=== PATIENT | male | born 1970 | race Caucasian/White ===

== ENCOUNTER 2025-01-01 11:27 | Emergency (ER) | payer OTHER, SELFPAY ==
[2025-01-01 11:32] VITALS: BP 153/92; PULSE 78; TEMP 36.7; O2SAT 98; BMI 31.4
--- NOTE | 2025-01-01 12:04 | CTR_ITS ---
PROCEDURE INFORMATION: Exam: CT Orbits With Contrast Exam date and time: 01/01/2025 12:39 PM Age: 54 years old Clinical indication: Visual changes or disturbances; Double vision (diplopra); PT arrives pov C/O blurry and doubling vision on and off for the past few days. ; Additional info: Diplopia TECHNIQUE: Imaging protocol: Computed tomography of the orbits with contrast. Radiation optimization: All CT scans at this facility use at least one of these dose optimization techniques: automated exposure control; mA and/or kV adjustment per patient size (includes targeted exams where dose is matched to clinical indication); or iterative reconstruction. Contrast material: OMNI 350; Contrast volume: 100 ml; Contrast route: INTRAVENOUS (IV); COMPARISON: None available. RADIATION DOSE METRICS: Total DLP (mGy-cm): 2834.23 FINDINGS: Optic globes appear intact. No suspicious orbital mass is identified. There is symmetric appearance of the optic nerves. Please note that MRI with coronal STIR imaging and/or 3D FLAIR imaging could provide more sensitive assessment for optic neuritis, if clinically warranted. There is symmetric appearance of the extraocular muscles. No suspicious parasellar mass detected. No evidence of cavernous sinus thrombosis. Paranasal sinuses are well-aerated. CT/CT orbit BI w con [id number] IMPRESSION: No detectable acute orbital abnormality or suspicious orbital mass. Please note that CT has extremely low sensitivity for optic neuritis. MRI could provide more optimal assessment for optic neuritis, and MRA could provide assessment for aneurysm, if either is clinically warranted and feasible.
--- NOTE | 2025-01-01 12:05 | CTR_ITS ---
PROCEDURE INFORMATION: Exam: CT Head Without And With Contrast Exam date and time: 01/01/2025 12:39 PM Age: 54 years old Clinical indication: Visual disturbance; Additional info: Diplopia TECHNIQUE: Imaging protocol: Computed tomography of the head without and with contrast. Radiation optimization: All CT scans at this facility use at least one of these dose optimization techniques: automated exposure control; mA and/or kV adjustment per patient size (includes targeted exams where dose is matched to clinical indication); or iterative reconstruction. Contrast material: OMNI 350; Contrast volume: 100 ml; Contrast route: INTRAVENOUS (IV); COMPARISON: CT orbit BI w con [id number] 01/01/2025 12:39 PM RADIATION DOSE METRICS: Total DLP (mGy-cm): 2834.23 FINDINGS: Brain: Unenhanced images demonstrate no acute intracranial hemorrhage or abnormal intracranial mass effect. The contrast-enhanced images demonstrate no obvious pathologic intracranial enhancement. There are no subdural collections. Cerebral ventricles: Size within normal range for age. No midline shift. Paranasal sinuses: Visualized portions of paranasal sinuses are well aerated. Mastoid air cells: Visualized portions of mastoid sinuses are not opacified. Bones: Unremarkable. No acute fracture. Soft tissues: No acute abnormality unless otherwise stated above. CT/CT head wo/w con [id number] IMPRESSION: No acute intracranial hemorrhage or mass effect.
--- NOTE | 2025-01-01 12:05 | ED_ITS ---
HPI - Eye Problem 2 General: Chief complaint: Eye Problems Stated complaint: Blurry vision and seeing double Time Seen by Provider: 01/01/25 11:53 History of Present Illness: 54-year-old man who presents emergency r oom with diplopia. He says he has been seeing double for the last 3 to 4 days. He says it actually has improved a little bit. He went to an application tester who examined his eyes and gave him some weak glasses that had not helped at all. He says he sees 1 thing on top of the other i.e. vertical diplopia. No headache. No fevers. No altered mental status. No focal motor deficits. Related Data Allergies Allergy/AdvReac Type Severity Reaction Status Date / Time No Known Allergies Allergy Verified 01/01/25 11:39 Review of Systems 2 Narrative: Constitutional symptoms: Negative except as documented in HPI. Skin symptoms: Negative except as documented in HPI. Eye symptoms: Negative except as documented in HPI. ENMT symptoms: Negative except as documented in HPI. Respiratory symptoms: Negative except as documented in HPI. Cardiovascular symptoms: Negative except as documented in HPI. Gastrointestinal symptoms: Negative except as documented in HPI. Genitourinary symptoms: Negative except as documented in HPI. Musculoskeletal symptoms: Negative except as documented in HPI. Neurologic symptoms: Negative except as documented in HPI. Psychiatric symptoms: Negative except as documented in HPI. Endocrine symptoms: Negative except as documented in HPI. Physical Exam 2 Narrative: EXAM NARRATIVE: General: Alert, no acute distress. Skin: Warm, dry. Head: Normocephalic, atraumatic. Neck: Supple, trachea midline. Eye: Extraocular movements are intact. No pain with eye movement. Vision is grossly normal. He says his diplopia improves when I move closer. When he tilts his head to the right it becomes worse when he tilts to the left it gets better. Ears, nose, mouth and throat: mucosa moist. Cardiovascular: Regular, Normal peripheral perfusion. Respiratory: Lungs are clear to auscultation, respirations are non-labored, breath sounds are equal, Symmetrical chest wall expansion. Gastrointestinal: Soft, Nontender, Non distended Musculoskeletal: Normal ROM, no deformity. Neurological: Alert and oriented, No focal neurological deficit observed. Psychiatric: Cooperative, appropriate mood & affect. Course 2 Vital Signs: Vital signs: Vital Signs Temperature 98.1 F 01/01/25 11:32 Pulse Rate 67 01/01/25 13:15 Respiratory Rate 16 01/01/25 13:15 Blood Pressure 145/89 01/01/25 13:15 Pulse Oximetry 97 01/01/25 13:15 Oxygen Delivery Me thod Room Air 01/01/25 11:32 MDM - Eye Problem Medical Decision Making Medical decision making: Differential diagnosis including but not limited to and based on the above HPI, review of systems and physical exam: Patient by exam appears to have a 4th nerve palsy. After consultation with ophthalmology I am going to do with and without contrast of the head and eyes to rule out any structural abnormalities or stroke. Basic lab work. Orders placed to evaluate differential diagnosis based on the above differential, HPI and physical exam Consultation: I spoke with Dr. Diaz with ophthalmology who recommends CT scan of the head and orbits. Basic lab work and follow-up. He recommends a pirate patch and follow-up in ophthalmology clinic Lab Review: Laboratory results were reviewed and interpreted by myself the emergency room physician. No leukocytosis. No anemia. No renal failure. CT of the brain and orbits with and without contrast: No acute process. This was reviewed and interpreted by myself the emergency room physician. I also reviewed the radiology report. I reviewed the patient's medical record. Reexamination: Patient remained stable. No increased work of breathing. No altered mental status. No focal motor deficits. Assessment and plan: 4th nerve palsy Diplopia - Discharged home - Discussed plan with patient. Answered any questions. - Evaluation and treatment of this problem were appropriate in the emergency setting. Lab Data 01/01/25 12:57 01/01/25 12:[address] 01/01/25 12:04 IMPRESSION: No detectable acute orbital abnormality or suspicious orbital mass. Please note that CT has extremely low sensitivity for optic neuritis. MRI could provide more optimal assessment for optic neuritis, and MRA could provide assessment for aneurysm, if either is clinically warranted and feasible. Head CT 01/01/25 12:05 IMPRESSION: No acute intracranial hemorrhage or mass effect. Laboratory Results WBC 3.69 10^3/uL (3.29-11.43) 01/01/25 12:57 RBC 4.88 10^6/uL (3.85-5.65) 01/01/25 12:57 Hgb 14.60 g/dL (11.27-16.99) 01/01/25 12:57 Hct 42.1 % (37-53) 01/01/25 12:57 MCV 86.3 fl (82-101) 01/01/25 12:57 MCH 29.9 pg (27-33) 01/01/25 12:57 MCHC 34.7 g/dL (30-55) 01/01/25 12:57 RDW 12.0 % (12.1-15.1) L 01/01/25 12:57 Plt Count 254 10^3/cmm (157-399) 01/01/25 12:57 MPV 9.8 fL (7.4-10.4) 01/01/25 12:57 Neut % (Auto) 68.0 % 01/01/25 12:57 Lymph % (Auto) 21.7 % 01/01/25 12:57 [place] % (Auto) 7.9 % 01/01/25 12:57 Eos % (Auto) 1.6 % 01/01/25 12:57 Baso % (Auto) 0.8 % 01/01/25 12:57 Neut # (Auto) 2.51 10^3/uL (1.8-7.7) 01/01/25 12:57 Lymph # (Auto) 0.8 10^3/uL (0.8-4.8) 01/01/25 12:57 [place] # (Auto) 0.3 10^3/uL (0.2-0.9) 01/01/25 12:57 Eos # (Auto) 0.1 10^3/uL (0.0-0.8) 01/01/25 12:57 Baso # (Auto) 0.0 10^3/uL (0.0-0.1) 01/01/25 12:57 Nucleated RBC % (auto) 0 % 01/01/25 12:57 Nucleated RBCs # 0.0 /100WBC 01/01/25 12:57 Sodium 135 mmol/L (136-145) L 01/01/25 12:57 Potassium 4.1 mmol/L (3.5-5.1) 01/01/25 12:57 Chloride 100 mmol/L (98-107) 01/01/25 12:57 Carbon Dioxide 23 mmol/L (22-29) 01/01/25 12:57 Anion Gap 16.1 (5-19) 01/01/25 12:57 BUN 11 mg/dL (6-20) 01/01/25 12:57 Creatinine 1.0 mg/dL (0.7-1.2) 01/01/25 12:57 GFR Calculation 77.9 mL/min (90-130) L 01/01/25 12:57 Glucose 100 mg/dL (65-115) 01/01/25 12:57 Calculated Osmolality 279 mOsm/kg (285-295) L 01/01/25 12:57 Calcium 8.9 mg/dL (8.5-10.5) 01/01/25 12:57 Total Bilirubin 0.4 mg/dL (0.15-1.2) 01/01/25 12:57 AST 28 U/L (0-40) 01/01/25 12:57 ALT 19 U/L (0-41) 01/01/25 12:57 Alkaline Phosphatase 33 U/L (40-130) L 01/01/25 12:57 Total Protein 7.2 g/dL (6.6-8.7) 01/01/25 12:57 Albumin 4.2 g/dL (3.5-5.2) 01/01/25 12:57 Globulin 3.0 g/dL (1.3-4.6) 01/01/25 12:57 All radiology interpretation(s) finalized by discharge Discharge Plan Discharge Patient Disposition: Home Clinical Impression: 4th nerve palsy Condition: Stable Discharge Orders: Discharge ED (Routine); Ordered 01/01/25 Ordered By: La Rosenthal Referrals: Nabeel Diaz [Physician, Opthalmology] - 4-7 days Referral Note: Please call for a follow-up appointment Discharge Diet: Usual diet Discharge Activity: Limit activity as instructed Patient Instructions: Diplopia (ED), Opioid Safety, Pain Management, Patient Portal & Ananda Instructions Activity Restrictions/Additional Instructions: Thank you for choosing [facility] for your healthcare needs today. You have been screened and evaluated and felt safe for discharge. Health conditions do change or evolve sometimes and as such it is important that you follow up with your Primary Doctor to be re checked, 3-5 days is a general good time frame for follow up. You are always welcome to return to the ED for re assessment if your symptoms are worsening or you have new concerns Print Language: Indonesian Coding Level of Care Code ED Dispute Specialist for Salena Armas
[2025-01-01] MEDS: iohexol 350 mg/mL 500 mL Btl (per mL) IV (12:45)
[2025-01-01 13:13] LABS: Hematocrit 42.1 % (37-53); Hemoglobin 14.60 g/dL (11.27-16.99); Mean Corpuscular HGB Conc 34.7 g/dL (30-55); Mean Corpuscular Hemoglobin 29.9 pg (27-33); Mean Corpuscular Volume 86.3 fl (82-101); Nucleated Red Blood Cells % 0 %; Platelet Count 254 10^3/cmm (157-399); Red Blood Count 4.88 10^6/uL (3.85-5.65); White Blood Count 3.69 10^3/uL (3.29-11.43)
[2025-01-01 13:15] VITALS: BP 145/89; PULSE 67; RESP 16; O2SAT 97
[2025-01-01 13:31] LABS: Alanine Aminotransferase 19 U/L (0-41); Albumin Level 4.2 g/dL (3.5-5.2); Alkaline Phosphatase 33 U/L (40-130); Anion Gap 16.1 (5-19); Aspartate Amino Transferase 28 U/L (0-40); Blood Urea Nitrogen 11 mg/dL (6-20); Calcium 8.9 mg/dL (8.5-10.5); Carbon Dioxide 23 mmol/L (22-29); Chloride 100 mmol/L (98-107); Creatinine Clr Calc Pharmacy 105.8913; Globulin 3.0 g/dL (1.3-4.6); Glucose 100 mg/dL (65-115); Osmolality Calculated 279 mOsm/kg (285-295); Potassium 4.1 mmol/L (3.5-5.1); Sodium 135 mmol/L (136-145); Total Protein 7.2 g/dL (6.6-8.7)
[2025-01-01 14:05] VITALS: BP 157/102; PULSE 63; RESP 16; O2SAT 97
== END 2025-01-01 14:09 | disposition home or self-care (01) ==
PROVIDERS: Emergency Provider Emergency Medicine
DX: G58.8 Other specified mononeuropathies (principal)
CPT/HCPCS: 36415; 70470; 70481; 80053; 85025; 99285